=== PATIENT | male | born 1965 | race Caucasian/White ===

== ENCOUNTER 2022-07-29 18:49 | Emergency (ER) | payer OTHER, SELFPAY ==
[2022-07-29 18:52] VITALS: BP 159/84; PULSE 69; RESP 14; TEMP 36.5; O2SAT 100; BMI 27.1
--- NOTE | 2022-07-29 19:02 | ED_ITS ---
HPI - General Adult General Time Seen by Provider: 19:02 Date Seen: 07/29/22 Chief complaint: Insect Bite Stated complaint: Allergic reaction to bug bite Time Seen by Provider: 07/29/22 18:53 Source: patient and RN notes reviewed Mode of arrival: ambulatory Limitations: no limitations History of Present Illness HPI narrative: Patient is a 57-year-old male coming [facility] with concern of an allergic reaction from a bug bite. He was outside, had some type of a bug land on his right upper lip. He simply brushed it off. He went into the house and started having upper lip swelling immediately. It started quarter sized and then quickly spread to his upper lip. It feels a little numb and tingly. Does not extend into his mouth, no tongue or oral pharyngeal swelling. No difficulty breathing. He has had no rash elsewhere on his body. There is no history of any food or bug allergies before. Patient has no known drug allergies. He did take 2 Benadryl prior to coming in and did start icing his upper lip. Related Data Home Medications Medication Instructions Recorded Confirmed losartan .ROUTE 07/29/22 Previous Rx's Medication Instructions Recorded epinephrine 0.3 mg/0.3 mL 0.3 mg (0.3 mL) IM Q5-15M PRN #2 ea 07/29/22 injection, auto-injector (EpiPen) prednisone 20 mg tablet 20 mg PO DAILY #2 tabs 07/29/22 Allergies Allergy/AdvReac Type Severity Reaction Status Date / Time No Known Drug Allergies Allergy Verified 07/29/22 18:57 Review of Systems Narrative: As per HPI. PFSH PFS Social History Smoking Status: Never smoker Do you use any of these nicotine containing products: None Second hand tobacco smoke exposure: No How often do you have a drink containing alcohol: 2-3 times a week How many standard drinks containing alcohol do you have on a typical day: 1 or 2 How often do you have six or more drinks on one occasion: Never AUDIT-C Alcohol total score: 3 Non-prescribed substance use: denies use Exam Const: Vital Signs, click to edit/add: Vital Signs - 24 hr 07/29/22 18:52 Temperature 97.7 F Pulse Rate [Pulse Oximeter] 69 Respiratory Rate 14 Blood Pressure [Ri ght Upper Arm] 159/84 H Pulse Oximetry 100 Oxygen Delivery Me thod Room Air Documenting provider has reviewed patient's vital signs: yes Common normals: no apparent distress, average body habitus, oriented x3, no limitations, healthy appearing, alert and well nourished General appearance: cooperative, comfortable, well kempt and well developed HENMT: Other: His entire upper lip is swollen probably twice his normal size. Lower lip is unaffected. It does not extend up to the nose, oropharynx and tongue are uninvolved. Tongue is not swollen, oral mucosa without any swelling come posterior pharynx is normal. Voice is normal, no hoarseness, able speak in complete sentences. Lungs are clear with good air entry, no wheezing or crackles. CV regular rate and rhythm no murmur. Skin without any visible rash. Neuro: Common normals: oriented x3 Sensorium/orientation: alert Psych: Appearance: well kempt Course Course Hospital Course: Have discussed with patient that this certainly is a localized bug bite reaction. He has no idea what type of bug it was, did not feel any sting or bite from this insect. Whether not this is an initial allergic reaction and could have subsequent more significant reactions is unknown. We have reviewed this in some detail. He and his would like to have an EpiPen at home just in case he would have a significant reaction in the future. We have discussed the difference between a localized bug bite reaction and systemic reactions. We have also reviewed the need to know how to administer the EpiPen. Since he has already taken Benadryl, will add in Zyrtec here. Discussed that this can help both with the localized bug bite reaction as well as allergic reactions. Will give him 10 mg oral prednisone here since it is later in the evening. All these can help with the inflammation and swelling. Vital Signs Vital signs: Initial Vital Signs Temperature 97.7 F 07/29/22 18:52 Temperature Source Temporal Artery Scan 07/29/22 18:52 Pulse Rate 69 07/29/22 18:52 Respiratory Rate 14 07/29/22 18:52 Blood Pressure 159/84 H 07/29/22 18:52 Blood Pressure Mean 109 H 07/29/22 18:52 Blood Pressure Position Standing 07/29/22 18:52 Pulse Oximetry 100 07/29/22 18:52 Oxygen Delivery Method Room Air 07/29/22 18:52 Vital Signs Temperature 97.7 F 07/29/22 18:52 Pulse Rate 69 07/29/22 18:52 Respiratory Rate 14 07/29/22 18:52 Blood Pressure 159/84 H 07/29/22 18:52 Pulse Oximetry 100 07/29/22 18:52 Oxygen Delivery Method Room Air 07/29/22 18:52 Temperature 97.7 F 07/29/22 18:52 Pulse Rate 69 07/29/22 18:52 Respiratory Rate 14 07/29/22 18:52 Blood Pressure 159/84 H 07/29/22 18:52 Pulse Oximetry 100 07/29/22 18:52 Oxygen Delivery Method Room Air 07/29/22 18:52 Discharge Plan Discharge Clinical Impression: Bug bite, Swollen upper lip Patient Disposition: Home, Self-Care Condition: Stable Instructions: Insect Bite or Sting (ED), Anaphylaxis (ED) Additional Instructions: Continue ice to the upper lip as much as possible for the next 24-48 hours or until swelling is resolving. Use Zyrtec daily, 1st dose was given here tonight, until swelling has resolved. Would expect you might need to use Zyrtec anywhere from 3-5 days. Can continue with Benadryl as needed for ongoing upper lip swelling, follow package instructions for dosing. Will do a couple days of prednisone, take with food. Did give you a low dose of prednisone here tonight, can take the next dose tomorrow morning with food and take as prescribed for 2 days. I have provided a EpiPen for you to have on hand. This localized reaction is not necessarily considered an allergic reaction. However, any time a person is exposed to stings and bites from insects, the potential for allergic reaction with a subsequent stating he can happen. Thus, will give the prescription for the EpiPen as he requested. Review the handout on anaphylaxis which goes over signs and symptoms of systemic allergic reactions. You would use the EpiPen if you are having a systemic reaction. Activity Level: Activity as Tolerated Prescriptions: New prednisone 20 mg tablet 20 mg PO DAILY Qty: 2 0RF epinephrine [EpiPen] 0.3 mg/0.3 mL auto-injector 0.3 mg IM Q5-15M PRNQty: 2 0RF Rx Instructions: do not exceed 3 doses per episode No Action losartan .ROUTE Stand Alone Forms: [employer] Info Instructions
[2022-07-29] MEDS: predniSONE 10 MG TABLET PO (19:25)
[2022-07-29] MEDS: CETIRIZINE HCL 10 MG TABLET PO (19:27)
== END 2022-07-29 19:37 | disposition home or self-care (01) ==
PROVIDERS: Emergency Provider Family Medicine
DX: S00.561A Insect bite (nonvenomous) of lip, initial encounter (principal)
CPT/HCPCS: 99283; A9270; J7512

== ENCOUNTER 2023-05-22 20:53 | Emergency (ER) | payer OTHER, SELFPAY ==
[2023-05-22 21:15] VITALS: BP 150/83; PULSE 88; RESP 18; O2SAT 100; BMI 27.1
--- NOTE | 2023-05-22 21:36 | ED_ITS ---
HPI - General Adult General Chief complaint: Edema Stated complaint: swollen left leg Time Seen by Provider: 05/22/23 21:13 Source: patient Mode of arrival: ambulatory Limitations: no limitations History of Present Illness HPI narrative: 50 year male coming in today complaining of leg swelling. Patient was diagnosed with a bursitis and was placed on Keflex b.i.d. yesterday. He states he has had 3 doses. In the last day his leg has become more swollen and redder. He denies any fevers, chills, vomiting. He states that taking the medications makes him feel slightly nauseated for short amount of time after he takes it but otherwise he is not nauseated for the remainder of the day. He denies changes in his appetite. He is not having diarrhea. He is not having any pain inside the joint. Related Data Home Medications Medication Instructions Recorded Confirmed losartan .ROUTE 07/29/22 Previous Rx's Medication Instructions Recorded epinephrine 0.3 mg/0.3 mL 0.3 mg (0.3 mL) IM Q5-15M PRN #2 ea 07/29/22 injection, auto-injector (EpiPen) prednisone 20 mg tablet 20 mg PO DAILY #2 tabs 07/29/22 Allergies Allergy/AdvReac Type Severity Reaction Status Date / Time No Known Drug Allergies Allergy Verified 07/29/22 18:57 Review of Systems Status of ROS: Reports: 10 or more systems reviewed and unremarkable except as noted in History and below [facility] Social History Smoking Status: Never smoker Do you use any of these nicotine containing products: None Second hand tobacco smoke exposure: No How often do you have a drink containing alcohol: 2-3 times a week How many standard drinks containing alcohol do you have on a typical day: 1 or 2 How often do you have six or more drinks on one occasion: Never AUDIT-C Alcohol total score: 3 Non-prescribed substance use: denies use Exam Narrative: Exam Narrative: Well-nourished well-developed patient in no acute distress. Alert and oriented. Answers questions appropriately. Mood and affect are appropriate. Thoughts are goal oriented and rational. No tangential or magical thinking noted. Alley ent speaks in full sentences without needing to catch his breath. HEENT: Normocephalic atraumatic. Pupils are equally round reactive to light. Extraocular muscles are intact. Conjunctivae are moist without any icterus noted. Moist mucous membranes. Extremities: Patient has an obvious prepatellar bursitis with cellulitis. The area is warm and red. The bursa is swollen and soft. He has no knee pain with passive range of motion. He does have swelling going down the leg without erythema. The erythema is confined to around the anterior knee. Const: Vital Signs, click to edit/add: Vital Signs - 24 hr 05/22/23 21:15 Pulse Rate [Left P ulse Oximeter] 88 Respiratory Rate 18 Blood Pressure [Ri ght Upper Arm] 150/83 H Pulse Oximetry 100 Oxygen Delivery Me thod Room Air Course Vital Signs Vital signs: Initial Vital Signs Temperature Source Temporal Artery Scan 05/22/23 21:15 Pulse Rate 88 05/22/23 21:15 Pulse Rhythm Regular 05/22/23 21:15 Respiratory Rate 18 05/22/23 21:15 Blood Pressure 150/83 H 05/22/23 21:15 Blood Pressure Mean 105 05/22/23 21:15 Blood Pressure Position Sitting 05/22/23 21:15 Pulse Oximetry 100 05/22/23 21:15 Oxygen Delivery Method Room Air 05/22/23 21:15 Vital Signs Pulse Rate 88 05/22/23 21:15 Respiratory Rate 18 05/22/23 21:15 Blood Pressure 150/83 H 05/22/23 21:15 Pulse Oximetry 100 05/22/23 21:15 Oxygen Delivery Method Room Air 05/22/23 21:15 Pulse Rate 88 05/22/23 21:15 Respiratory Rate 18 05/22/23 21:15 Blood Pressure 150/83 H 05/22/23 21:15 Pulse Oximetry 100 05/22/23 21:15 Oxygen Delivery Method Room Air 05/22/23 21:15 Medical Decision Making MDM Narrative Medical decision making narrative: 58-year-old male with they prepatellar bursitis and cellulitis. Patient currently being under dosed with Keflex. We increased his dose to q.i.d. and add Bactrim b.i.d. for 5 days as well. We discussed that if in the next 24 hours his symptoms worsen instead of stay the same or get better that I would like him to return to the ER. Otherwise recommend he follow-up with orthopedics will he has an appointment already scheduled with the beginning of next week Discharge Plan Discharge Clinical Impression: Bursitis, prepatellar, Cellulitis Patient Disposition: Home, Self-Care Condition: Stable Additional Instructions: Monitor the amount of redness seen around the knee. If at the end of 24 hours the amount of redness grows significantly past the drawn lines of the knee, return to the ER. Would also recommend you return to the ER if you develop a fever, weakness or vomiting. Increase your cephalexin to 500 mg 4 times per day. Add Bactrim DS twice per day for 5 days. [facility] Prescriptions: No Action losartan .ROUTE prednisone 20 mg tablet 20 mg PO DAILY Qty: 2 0RF epinephrine [EpiPen] 0.3 mg/0.3 mL auto-injector 0.3 mg IM Q5-15M PRNQty: 2 0RF Rx Instructions: do not exceed 3 doses per episode Follow Up/Referrals: Provider,Not a Local [Primary Care Provider] - Stand Alone Forms: [employer] Info Instructions
== END 2023-05-22 22:03 | disposition home or self-care (01) ==
LOC: ED 21:42
PROVIDERS: Emergency Provider Family Medicine
DX: L03.116 Cellulitis of left lower limb (principal); M70.42 Prepatellar bursitis, left knee
CPT/HCPCS: 99283; 99284

== ENCOUNTER 2023-05-24 00:12 | Emergency (ER) | payer OTHER, SELFPAY ==
[2023-05-24 00:15] VITALS: BP 144/80; PULSE 69; RESP 16; TEMP 36.1; O2SAT 100; BMI 27.1
--- NOTE | 2023-05-24 00:21 | ED.GENADULT ---
HPI - General Adult General Time Seen by Provider: 00:21 Date Seen: 06/16/23 Chief complaint: Edema Stated complaint: Wants to get his leg checked. Time Seen by Provider: 05/24/23 00:20 Source: patient, RN notes reviewed and old records reviewed Mode of arrival: ambulatory Limitations: no limitations History of Present Illness HPI narrative: 50-year-old male who comes in with drainage from his knee. He was diagnosed with bursitis couple days ago, was seen in the emergency department 2 days ago and feels like his leg is getting worse. The redness has gotten a little bit better and has retreated from the previously marked areas, however the central area is more purplish and more swollen, now with some drainage. Denies fever, chills, nausea, vomiting. Related Data Home Medications Medication Instructions Recorded Confirmed losartan .ROUTE 07/29/22 Previous Rx's Medication Instructions Recorded epinephrine 0.3 mg/0.3 mL 0.3 mg (0.3 mL) IM Q5-15M PRN #2 ea 07/29/22 injection, auto-injector (EpiPen) prednisone 20 mg tablet 20 mg PO DAILY #2 tabs 07/29/22 Allergies Allergy/AdvReac Type Severity Reaction Status Date / Time No Known Drug Allergies Allergy Verified 07/29/22 18:57 PFSH PFSH Social History Smoking Status: Never smoker Do you use any of these nicotine containing products: None Second hand tobacco smoke exposure: No How often do you have a drink containing alcohol: 2-3 times a week How many standard drinks containing alcohol do you have on a typical day: 1 or 2 How often do you have six or more drinks on one occasion: Never AUDIT-C Alcohol total score: 3 Non-prescribed substance use: denies use service: No Exam Narrative: Exam Narrative: General: well nourished , NAD Head: Atraumatic and normocephalic ENT: External ears and external nose are normal Eyes: Conjunctiva clear, pupils are equal reactive, external ocular motions are intact Neck: Full spontaneous range of motion of the neck Lungs: No respiratory distress Musculoskeletal: Swelling of the left knee just over the inferior patella, this has retreated from the previous marked area but there is a purplish discolored area with small amount of purulent drainage. No joint effusion or pain with passive movement. Neurologic: No gross focal neurologic deficits Skin: No rashes Psych: Mood and affect are appropriate Const: Vital Signs, click to edit/add: Vital Signs - 24 hr 05/24/23 00:15 Temperature 96.9 F L Pulse Rate [Left P ulse Oximeter] 69 Respiratory Rate 16 Blood Pressure [Ri ght Upper Arm] 144/80 H Pulse Oximetry 100 Oxygen Delivery Me thod Room Air Course Course ED Course: Patient seen examined, prior records are reviewed including emergency department visit from yesterday days ago for this same problem, at that time was on Keflex but at twice a day, increased to 4 times a day. Swelling is improving but there is some drainage tonight. He has an appointment with orthopedics tomorrow morning. On exam, no joint effusion to suggest septic arthritis or crystal arthropathy. The central area of about 2 cm just lateral to the distal patella is tender and boggy with 1 central area of purulent drainage. After discussing risks and benefits, the area was numbed with lidocaine 1% with epinephrine and a cruciate incision was made with small amount of purulent drainage obtained. Dressing was placed. Follow-up with orthopedics tomorrow, patient may need a more aggressive debridement of the bursa itself. Vital Signs Vital signs: Initial Vital Signs Temperature 96.9 F L 05/24/23 00:15 Temperature Source Temporal Artery Scan 05/24/23 00:15 Pulse Rate 69 05/24/23 00:15 Pulse Rhythm Regular 05/24/23 00:15 Respiratory Rate 16 05/24/23 00:15 Blood Pressure 144/80 H 05/24/23 00:15 Blood Pressure Mean 101 05/24/23 00:15 Blood Pressure Position Sitting 05/24/23 00:15 Pulse Oximetry 100 05/24/23 00:15 Oxygen Delivery Method Room Air 05/24/23 00:15 Vital Signs Temperature 96.9 F L 05/24/23 00:15 Pulse Rate 69 05/24/23 00:15 Respiratory Rate 16 05/24/23 00:15 Blood Pressure 144/80 H 05/24/23 00:15 Pulse Oximetry 100 05/24/23 00:15 Oxygen Delivery Method Room Air 05/24/23 00:15 Temperature 96.9 F L 05/24/23 00:15 Pulse Rate 69 05/24/23 00:15 Respiratory Rate 16 05/24/23 00:15 Blood Pressure 144/80 H 05/24/23 00:15 Pulse Oximetry 100 05/24/23 00:15 Oxygen Delivery Method Room Air 05/24/23 00:15 Discharge Plan Discharge Clinical Impression: Bursitis, prepatellar, Cellulitis, Septic prepatellar bursitis of left knee Patient Disposition: Home, Self-Care Condition: Stable Instructions: Cellulitis (ED), Knee Bursitis (ED) Activity Level: No Restrictions Activity Detail: Follow-up with orthopedics in the morning to schedule Discharge Diet: Regular Prescriptions: No Action losartan .ROUTE prednisone 20 mg tablet 20 mg PO DAILY Qty: 2 0RF epinephrine [EpiPen] 0.3 mg/0.3 mL auto-injector 0.3 mg IM Q5-15M PRNQty: 2 0RF Rx Instructions: do not exceed 3 doses per episode Follow Up/Referrals: Provider,Not a Local [Primary Care Provider] - Stand Alone Forms: [employer] Info Instructions
== END 2023-05-24 01:00 | disposition home or self-care (01) ==
LOC: ED 00:57
PROVIDERS: Emergency Provider Family Medicine
DX: M70.42 Prepatellar bursitis, left knee (principal)
CPT/HCPCS: 10160; 99283

== ENCOUNTER 2024-10-28 13:54 | Emergency (ER) | payer OTHER, SELFPAY ==
--- OUTSIDE RECORDS SUMMARY | 2024-10-28 13:56 | XMS_ITS | Encounter Summary ---
Author Organization [employer] Address [address], [place] [address] Care Team Providers Care Supervisor [employer] Name Role Phone Yasmine Rondon PA-C Primary Care Provider [phone] Reason for Visit * Reason Comments Refill losartan (COZAAR) 50 MG tablet [Pharmacy Med Name: LOSARTAN POTASSIUM 50 MG TAB] Encounter Details Date Type Department Care Team (Late st Contact Info) Description 10/07/2024 Refill [facility] [address] [place] [address] Yasmine Rondon PA-C [address] [place] [address] Refill (losartan (COZAAR) 50 MG tablet [Pharmacy Med Name: LOSARTAN POTASSIUM 50 MG TAB]) Social History Tobacco Use Types Packs/Day Years Used Date Smoking Tobacco: Never Passive Smoke Exposure: Never Smokeless Tobacco: Never Alcohol Use Standard Drinks/Week Comments Yes 4 (1 standard drink = 0.6 oz pur e alcohol) few drinks mo PHQ-2 Answer Date Recorded PHQ-2 Score 0 08/10/2023 Financial Resource Strain Answer Date R ecorded Is it hard for you to pay fo r the very basics like food, housing, medical care or heating? No 06/06/2022 Food Insecurity Answer Date Recorded Does your food run out before you have the money to buy more? No 06/06/2022 Transportation Needs Answer Date Record ed Does a lack of transportatio n keep you from your medical appointments or from getting your medications? 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 Patient due for Lab(s). Review pended order for accuracy and sign if appropriate, Clinician to order lab(s) and document ifpatient is due for lab only visit or office visit and lab, and Route to [facility] Line to schedule appointment Requested Prescriptions Pending Prescriptions Disp Refills losartan (COZAAR) 50 MG tablet [Pharmacy Med Name: LOSARTAN POTASSIUM 50 MG TAB] 90 Tablet 0 Sig: TAKE 1 TABLET BY MOUTH EVERY DAY * Marcela Smith [employer]rwcomm - 10/07/2024 12:27 AM CDT losartan (COZAAR) 50 MG tablet [Pharmacy Med Name: LOSARTAN POTASSIUM 50 MG TAB] Medication started: 10/14/2018 Last ordered by YASMINE RONDON: 08/10/2023 (424 days ago) QTY: 90, Refills: 3, Sig: take 1 tablet (50 mg) by mouth daily. (changed but equivalent) -> Cr and K are overdue (performed over 14 months ago, required every 12 months) Last qualifying visit: 05/11/2024 (with YASMINE RONDON) Next scheduled visit: None Cr: 0.85 mg/dL on 08/10/2023 K: 5 mEq/L on 08/10/2023 [facility] Embedded Refills, Reference: [id number], 10/07/2024 12:27:16 AM CDT, Pool: SASHA Refgabriella [facility] - Primary [facility] ([id number]) * Marcela Smith - 10/07/2024 12:27 AM CDT The following lab order(s) may be associated with the Result Note below: BASIC METABOLIC PANEL Notes recorded by Yasmine Rondon on 08/10/2023 at 12:04 PM CDT All of your lab results returned within normal and acceptable limits * Marcela Smith - 10/07/2024 12:27 AM CDT The following lab order(s) may be associated with the following Patient Result Comment (Entered by Yasmine Rondon PA-C at 08/10/2023 12:04 PM): BASIC METABOLIC PANEL All of your lab results returned within normal and acceptable limits documented in this encounter Plan of Treatment Upcoming Encounters Date Type Department Care Team (Late st Contact Info) Description 11/02/2024 8:15 AM CDT Appointment [facility] [address] [facility] [place] [address] Leanne Pelayo MD [address] [place] [address] documented as of this encounter Visit Diagnoses Diagnosis Hypertension, unspecified type (HRC) documented in this encounter Care Teams Supervisor [employer] Relationship Specialty Start Date End Date Yasmine Rondon PA-C [address] [place] [address] PCP - General 02/07/21 documented as of this encounter
--- OUTSIDE RECORDS SUMMARY | 2024-10-28 13:56 | XMS_ITS | Clinical Summary ---
Author Organization [facility] Address [address] [place] [address] Care Team Providers Care Sulfonator Operator Name Role Phone Mary Rondon PA-C Primary Care Provider [phone] Source Comments You are receiving this document as you are listed as the primary care provider,follow-up provider, or the patient has been referred to you for consultation.This is in compliance with the Medicare and[facility] Cent[facility] EHR Incentive Program,which states Providers who transition their patient to another setting of careor provider of care or refers their patient to another provider of care shouldprovide summary care record for each transition of care or referral. [facility] Allergies No known active allergies Medications sildenafil (VIAGRA) 100 MG tabletIndicatio ns:Erectile dysfunction, unspecified erectile dysfunction type TAKE 0.5-1 TABLET (50-100 MG) BY MOUTH DAILY NEEDED. 6 Tablet 11 08/15/19 23 Active triamcinolone acetonide (KENALOG) 0.1 % creamIndication s:Rash APPLY TOPICALLY THREE TIMES A DAY 80 g 1 06/14/19 24 Active fluticasone propionate (FLONASE) 50 MCG/ACT nasal solution Place 2 Sprays into both nostrils daily. Active metroNIDAZOLE (METROLOTION) 0.75 % lotionIndicatio ns:Acne rosacea APPLY TOPICALLY TWO TIMES A DAY. 60 mL 3 01/18/20 24 Active ALPRAZolam (XANAX) 1 MG tablet Take 1 Tablet (1 mg) by mouth once as needed for up to 1 dose. Take when instructed by nurse, pre-procedure 1 Tablet 03/01/19 25 Active losartan (COZAAR) 50 MG tabletIndicatio ns:Hypertension , unspecified type (HRC) TAKE 1 TABLET BY MOUTH EVERY DAY 90 Tablet 10/13/19 25 Active losartan (COZAAR) 50 MG tabletIndicatio ns:Hypertension , unspecified type (HRC) Take 1 Tablet (50 mg) by mouth daily. 90 Tablet 3 08/10/19 24 025 Discontinued Active Problems Problem Noted Date Diagnosed Date Hypertension 06/09/2022 Acne rosacea 06/09/2022 Personal history of other malignant neoplasm of skin 05/23/2008 Overview (09/30/2016): Mid back and mid inferior back treated with ED&C on 05/23/2008 ; History of Basal cell carcinoma Allergic rhinitis 04/01/2004 Overview (11/08/2014): seasonal spring and fall Epic Encounters Date Type Department Care Team Description 10/07/2024 Refill [facility] [address] [phone] Mary Rondon PA-C Refill (losartan (COZAAR) 50 MG tablet [Pharmacy Med Name: LOSARTAN POTASSIUM 50 MG TAB]) from Last 3 Months Immunizations Immunization Administration Dates Next Due Influenza IIV4 (Quadrivalent ) 0.5mL (75749) 12/10/2021,01/01/2021 Influenza ccIIV3 6 months+ (Flucelvax) 11/05/2023,11/07/2022 Moderna Bivalent 12+ 12/13/2021 Moderna COVID-19 12+ 11/05/2023 Moderna Monovalent 12+ 11/07/2022,2021,02/27/2021,2020,05/28/2020 Td 10/15/2005,02/08/1996 Td (7+ yrs) 04/08/2015 Tdap 10/15/2005 Varicella 10/09/1999(Deferred: Immune by [facility]) Zoster RZV (Shingrix) 11/07/2021,07/25/2021 Family History Medical History Relation Name Comments Coronary Artery Disease Father 62 ? 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 Not on file Not on file Last Filed Vital Signs Vital Sign Reading Time Taken Comments Blood Pressure 139/86 05/11/2024 8:27 AM CDT Pulse 67 05/11/2024 8:27 AM CDT Temperature 36.4 C (97.6 F) 11/19/2023 12:14 PM CDT Respiratory Rate 12 11/19/2023 12:30 PM CDT Oxygen Saturation 100% 11/19/2023 12:30 PM CDT Inhaled Oxygen Concentration - - Weight 95.7 kg (211 lb) 05/11/2024 8:27 AM CDT Height 182.9 cm (6') 05/11/2024 8:27 AM CDT Body Mass Index 28.62 05/11/2024 8:27 AM CDT Plan of Treatment Upcoming Encounters Date Type Department Care Team (Late st Contact Info) Description 11/02/2024 8:15 AM CDT Appointment [facility] [address] [facility] [place] [address] Leanne Pelayo MD [address] [place] [address] Health Maintenance Due Date Last Done Comments Hep C Screening (Preventive Services) 1965 HIV Screening (Preventive Services) 1981 HepB Vaccine (1) 1984 Pneumococcal Vaccine 50+ Yrs (1 of 1 - PCV) 2015 Adult Preventive Visit 08/09/2024 4, 06/09/2022, 04/22/2021, Additional history exists PSA Screening Discussion 08/09/2024 024, 06/09/2022, 04/22/2021, Additional history exists Influenza Vaccine (#1) 2024 4, 11/07/2022, 12/10/2021, Additional history exists DTaP/Tdap/Td Vaccine (4 - Tdap) 04/07/2025 04/08/2015, 10/15/2005, 10/15/2005, Additional history exists Diabetes Screening- (based on age and BMI) 08/09/2026 08/10/2023, 06/09/2022, 04/22/2021, Additional history exists Cholesterol 06/10/2027 06/09/2022, 04/08, 01/17/2020, Additional history exists Colonoscopy 11/18/2033 11/19/2023 Zoster/Shingles Vaccine Completed 11/07/2021, 07/25 FIT Colon Cancer Screening Discontinued 06/09, 06/15/2022, 06/25/2021, Additional history exists COVID-19 Vaccine Completed 11/05/2023, , 12/13/2021, Additional history exists HepA Vaccine Aged Out No longer eligi ble based on patient's age to complete this topic Hib Vaccine Aged Out No longer eligi ble based on patient's age to complete this topic IPV (Polio) Vaccine Aged Out No longe r eligible based on patient's age to complete this topic MCV4 Vaccine Aged Out No longer eligi ble based on patient's age to complete this topic Meningococcal B Vaccine Aged Out No l onger eligible based on patient's age to complete this topic Procedures Procedure Name Priority Date/Time Associated Diagnosis Comments COLONOSCOPY SCREENING Routine 11/19/2023 11:42 AM CDT Special screening for malignant neoplasms, colon HGB A1C Routine 08/10/2023 9:01 AM CDT Screening for diabetes mellitus PROSTATIC SPECIFIC ANTIGEN(SCREEN) Routine 08/10/2023 9:01 AM CDT Screening for prostate cancer FIT,OCCULT BLOOD, STOOL Routine 06/10/2023 7:30 AM CDT Screening for colon cancer LIPID PANEL & DIRECT LDL (IF NEEDED) Routine 06/09/2022 9:03 AM CDT Screening cholesterol level from Last 3 Months or Most Recently Relevant to Health Maintenance Results * Colonoscopy Screening - Mod Sedation (11/19/2023 11:42 AM CDT) Anatomical Region Laterality Modality Other 11/19/2023 11:4 2 AM CDT Narrative 11/19/2023 12:15 PM CDT Instrument Name: [id number] Indications: Screening for colorectal malignant neoplasm Providers: Deborah Whaley MD, Daniela Graves LPN, Yanci Flores Patient Profile: This is a 58 year old male here for first screening colonoscopy, FIT testing negative through 2022, no known family history of colon cancer or polyps. Clinically asymptomatic.. Referring MD: Mary Laureano Medicines: Fentanyl 100 micrograms IV, Midazolam 4 mg IV Complications: No immediate complications. Procedure: Pre-Anesthesia Assessment: - Prior to the procedure, a History and Physical was performed, and patient medications and allergies were reviewed. The patient is competent. The risks and benefits of the procedure and the sedation options and risks were discussed with the patient. All questions were answered and informed consent was obtained. Patient identification and proposed procedure were verified by the physician and the nurse in the procedure room. Mental Status Examination: alert and oriented. Airway Examination: normal oropharyngeal airway and neck mobility. Respiratory Examination: clear to auscultation. CV Examination: normal. Prophylactic Antibiotics: The patient does not require prophylactic antibiotics. Prior Anticoagulants: The patient has taken no anticoagulant or antiplatelet agents. ASA Grade Assessment: I - A normal, healthy patient. After reviewing the risks and benefits, the patient was deemed in satisfactory condition to undergo the procedure. The anesthesia plan was to use moderate sedation / analgesia (conscious sedation). Immediately prior to administration of medications, the patient was re-assessed for adequacy to receive sedatives. The heart rate, respiratory rate, oxygen saturations, blood pressure, adequacy of pulmonary ventilation, and response to care were monitored throughout the procedure. The physical status of the patient was re-assessed after the procedure. After I obtained informed consent, the scope was passed under direct vision. Prior to sedation, patient identity and procedure was reverified. Throughout the procedure, the patient's blood pressure, pulse, and oxygen saturations were monitored continuously. The Colonoscope was introduced through the anus and advanced to the terminal ileum. The colonoscopy was performed without difficulty. The patient tolerated the procedure well. The quality of the bowel preparation was evaluated using the BBPS ([place] Bowel Preparation Scale) with scores of: Right Colon = 2 (minor amount of residual staining, small fragments of stool and/or opaque liquid, but mucosa seen well), Transverse Colon = 3 (entire mucosa seen well with no residual staining, small fragments of stool or opaque liquid) and Left Colon = 3 (entire mucosa seen well with no residual staining, small fragments of stool or opaque liquid). The total BBPS score equals 8. The quality of the bowel preparation was good. Findings: The perianal and digital rectal examinations were normal. Non-bleeding internal hemorrhoids were found during retroflexion. The exam was otherwise without abnormality on direct and retroflexion views. The terminal ileum appeared normal. Moderate Sedation: Moderate (conscious) sedation was administered by the nurse and supervised by the endoscopist. The following parameters were monitored: oxygen saturation, heart rate, blood pressure, and response to care. Total physician intraservice time was 20 minutes. Impression: - Non-bleeding internal hemorrhoids. - The examination was otherwise normal on direct and retroflexion views. - The examined portion of the ileum was normal. - No specimens collected. Recommendation: - Discharge patient to home. - Resume previous diet. - Continue present medications. - Repeat colonoscopy in 10 years for screening purposes. - Return sooner (5 years) if new family history of colon cancer or advanced adenoma or if any new symptoms such as diarrhea or rectal bleeding (speak to PCP for diagnostic colonoscopy). Procedure Code(s): --- Professional --- 18914, Colonoscopy, flexible; diagnostic, including collection of specimen(s) by brushing or washing, when performed (separate procedure) G0500, Moderate sedation services provided by the same physician or other qualified health foster care worker performing a gastrointestinal endoscopic service that sedation supports, requiring the presence of an independent trained observer to assist in the monitoring of the patient's level of consciousness and physiological status; initial 15 minutes of intra-service time; patient age 5 years or older (additional time may be reported with 56569, as appropriate) Diagnosis Code(s): --- Professional --- Z12.11, Encounter for screening for malignant neoplasm of colon K64.8, Other hemorrhoids CPT copyright 2021 [employer] [place] [employer]. All rights reserved. The codes documented in this report are preliminary and upon hospital coder review may be revised to meet current compliance requirements. Attending Participation: Deborah Whaley MD 11/19/2023 12:15:15 PM Number of Addenda: 0 Note Initiated On: 11/19/2023 11:42 AM Procedure Note Deborah Whaley MD - 11/19/2023 Instrument Name: 288 Indications: Screening for colorectal malignant neoplasm Providers: Deborah Whaley MD, Daniela Graves LPN, Yanci Flores Patient Profile: This is a 58 year old male here for first screening colonoscopy, FIT testing negative through 2022, no known family history of colon cancer or polyps. Clinically asymptomatic.. Referring MD: Mary Laureano Medicines: Fentanyl 100 micrograms IV, Midazolam 4 mg IV Complications: No immediate complications. Procedure: Pre-Anesthesia Assessment: - Prior to the procedure, a History and Physical was performed, and patient medications and allergies were reviewed. The patient is competent. The risks and benefits of the procedure and the sedation options and risks were discussed with the patient. All questions were answered and informed consent was obtained. Patient identification and proposed procedure were verified by the physician and the nurse in the procedure room. Mental Status Examination: alert and oriented. Airway Examination: normal oropharyngeal airway and neck mobility. Respiratory Examination: clear to auscultation. CV Examination: normal. Prophylactic Antibiotics: The patient does not require prophylactic antibiotics. Prior Anticoagulants: The patient has taken no anticoagulant or antiplatelet agents. ASA Grade Assessment: I - A normal, healthy patient. After reviewing the risks and benefits, the patient was deemed in satisfactory condition to undergo the procedure. The anesthesia plan was to use moderate sedation / analgesia (conscious sedation). Immediately prior to administration of medications, the patient was re-assessed for adequacy to receive sedatives. The heart rate, respiratory rate, oxygen saturations, blood pressure, adequacy of pulmonary ventilation, and response to care were monitored throughout the procedure. The physical status of the patient was re-assessed after the procedure. After I obtained informed consent, the scope was passed under direct vision. Prior to sedation, patient identity and procedure was reverified. Throughout the procedure, the patient's blood pressure, pulse, and oxygen saturations were monitored continuously. The Colonoscope was introduced through the anus and advanced to the terminal ileum. The colonoscopy was performed without difficulty. The patient tolerated the procedure well. The quality of the bowel preparation was evaluated using the BBPS ([place] Bowel Preparation Scale) with scores of: Right Colon = 2 (minor amount of residual staining, small fragments of stool and/or opaque liquid, but mucosa seen well), Transverse Colon = 3 (entire mucosa seen well with no residual staining, small fragments of stool or opaque liquid) and Left Colon = 3 (entire mucosa seen well with no residual staining, small fragments of stool or opaque liquid). The total BBPS score equals 8. The quality of the bowel preparation was good. Findings: The perianal and digital rectal examinations were normal. Non-bleeding internal hemorrhoids were found during retroflexion. The exam was otherwise without abnormality on direct and retroflexion views. The terminal ileum appeared normal. Moderate Sedation: Moderate (conscious) sedation was administered by the nurse and supervised by the endoscopist. The following parameters were monitored: oxygen saturation, heart rate, blood pressure, and response to care. Total physician intraservice time was 20 minutes. Impression: - Non-bleeding internal hemorrhoids. - The examination was otherwise normal on direct and retroflexion views. - The examined portion of the ileum was normal. - No specimens collected. Recommendation: - Discharge patient to home. - Resume previous diet. - Continue present medications. - Repeat colonoscopy in 10 years for screening purposes. - Return sooner (5 years) if new family history of colon cancer or advanced adenoma or if any new symptoms such as diarrhea or rectal bleeding (speak to PCP for diagnostic colonoscopy). Procedure Code(s): --- Professional --- 18003, Colonoscopy, flexible; diagnostic, including collection of specimen(s) by brushing or washing, when performed (separate procedure) G0500, Moderate sedation services provided by the same physician or other qualified health foster care worker performing a gastrointestinal endoscopic service that sedation supports, requiring the presence of an independent trained observer to assist in the monitoring of the patient's level of consciousness and physiological status; initial 15 minutes of intra-service time; patient age 5 years or older (additional time may be reported with [id number], as appropriate) Diagnosis Code(s): --- Professional --- Z12.11, Encounter for screening for malignant neoplasm of colon K64.8, Other hemorrhoids CPT copyright 2021 [employer] [place] [employer]. All rights reserved. The codes documented in this report are preliminary and upon hospital coder review may be revised to meet current compliance requirements. Attending Participation: Deborah Whaley MD 11/19/2023 12:15:15 PM Number of Addenda: 0 Note Initiated On: 11/19/2023 11:42 AM Seda Evans MD ET GI PROCEDURE ORDERABLES Final Result * Prostatic Specific Antigen (Screen) (08/10/2023 9:01 AM CDT) Prostatic Specific Antigen 0.4 0.0 - 4.0 ng/mL 08/10/2023 12:03 PM CDT [email or web address] Blood Venipuncture / Unknown 08/10/2023 9:01 AM CDT 08/10/2023 9:01 AM CDT Narrative [facility] - 08/10/2023 12:03 PM CDT The [employer] PSA Chemiluminescent immunoassay is used. Results obtained with different test methods or kits cannot be used interchangeably. Mary Rondon PA-C LAB_1 Final Resu lt [facility] [address] * Hgb A1C (08/10/2023 9:01 AM CDT) [facility] Hemoglobin A1C 5.3 <=5.6 % 08/10/2023 11:49 AM CDT [facility] Estimated Average Glucose (Calc) 105 < 117 mg/dL 08/10/2023 11:49 AM CDT [facility] Comment:Estimated average gl ucose (eAG) converts A1c into glucose units (mg/dL) and estimates average glucose over the past approximately 3 months. The eAG reference interval (<117 mg/dL) corresponds to an A1c of <5.7%. Blood Venipuncture / Unknown 08/10/2023 9:01 AM CDT 08/10/2023 9:01 AM CDT Mary Rondon PA-C LAB_1 Final Resu lt Performing Organization Address [facility]/ZIP Co de Phone Number [facility] [address] * FIT Colon Rectal Cancer Screening [4702] (06/10/2023 7:30 AM CDT) [facility] FIT Specimen 1 Negative Negative 06/15/2023 2:02 AM CDT [facility] Stool Non-blood Collection / Unknown 06/10/2023 7:30 AM CDT 06/14/2023 2:10 PM CDT Mary Rondon PA-C LAB_1 Final Resu lt Performing Organization Address [facility]/State/ZIP Co de Phone Number [facility] [address] * Lipid Panel and Direct LDL(If Needed) (06/09/2022 9:03 AM CDT) [facility] Cholesterol 178 0 - 199 mg/dL 06/09/2022 12:00 PM CDT [facility] Triglyceride 39 <=149 mg/dL 06/09/2022 12:00 PM CDT [facility] HDL Cholesterol 65 >=40 mg/dL 06/09/2022 12:00 PM CDT [facility] LDL, Calculated 105 <130 mg/dL 06/09/2022 12:00 PM CDT [facility] Non HDL Chol, Calculated 113 <=159 mg/dL 06/09/2022 12:00 PM CDT [facility] Cholesterol/HDL Ratio 2.7 06/09/2022 12:00 PM CDT [facility] Hours Fasting 2 06/09/2022 12:00 PM CDT [facility] Blood Venipuncture / Unknown 06/09/2022 9:03 AM CDT 06/09/2022 9:03 AM CDT us Mary Rondon PA-C LAB_1 Final Resu lt Performing Organization Address City/State/[facility] Co de Phone Number [facility] [address] [address] [phone] [facility] [address] [employer] [place] [address] from Last 3 Months or Most Recently Relevant to Health Maintenance Insurance SELF INSURED HP SELF INSURED [employer] SELF INSURED Care Teams Sulfonator Operator Relationship Specialty Start Date End Date Mary Rondon PA-C [address] [place] [address] PCP - General 02/07/21
[2024-10-28 14:01] VITALS: BP 153/74; PULSE 66; RESP 18; TEMP 36.3; O2SAT 96; BMI 27.1
[2024-10-28 14:28] LABS: Troponin, Point-of-Care* 0.00 ng/ml (0.01-0.04)
[2024-10-28 14:32] LABS: Hematocrit* 42.7 % (37.0-53.0); Hemoglobin* 14.1 gm/dL (13.5-17.5); Immature Granulocytes Pct Auto 0.7 %; Mean Corpuscular HGB Conc 33 gm/dL (32-36); Mean Corpuscular Hemoglobin 30 pg (26-34); Mean Corpuscular Volume 92 fL (80-100); RDW Coefficient of Variation % 13.3 % (11.5-15.5); Red Blood Count* 4.66 m/uL (4.30-5.90); White Blood Count* 4.47 K/uL (4.50-11.00)
[2024-10-28 14:33] LABS: Immature Granulocytes Abs Auto 0.00 K/uL (0.00-0.30); Lymphocytes Absolute Auto 1.30 K/uL (0.90-2.90); Slide Review Reflex No
[2024-10-28 14:41] LABS: Chloride* 102 mmol/L (96-114); Sodium* 136 mmol/L (135-149)
[2024-10-28 14:42] LABS: Potassium* 4.1 mmol/L (3.6-5.1)
[2024-10-28 14:44] LABS: Blood Urea Nitrogen* 15 mg/dL (7-30); Creatinine* 0.7 mg/dL (0.5-1.5); Est. Creatinine Clearance* 124.71; Estimated Glomerular Filt Rate 106 ml/min
[2024-10-28 14:45] LABS: Anion Gap 6 mEq/L (7-15); Calcium* 8.6 mg/dL (8.4-10.6); Carbon Dioxide* 28 mmol/L (20-32); Glucose* 101 mg/dL (60-115)
--- NOTE | 2024-10-28 15:02 | ED_ITS ---
HPI - General Adult General Date Seen: 10/28/24 Chief complaint: Jaw Injury/Pain Stated complaint: Left jaw, stiff and pain Time Seen by Provider: 10/28/24 15:02 History of Present Illness HPI narrative: 59 yo M with history of varicose veins, previous prepatellar bursitis who presents to the ER today by private car with his for concern for stiffness and discomfort in his left neck. Symptoms happened couple of hours prior to arrival at about 12 30. He and his were doing normal errands and going to a local apple ordered. He was not doing any neck movement or twisting or any strenuous physical activity when he felt onset of a tight stiff feeling in the left side of his neck (gestures at the left sternocleidomastoid muscle). Symptoms lasted for few minutes and made him uncomfortable but not enough to prevent him from continuing on his errands. He and his picked up a bag of apples. Symptoms started to get better in his neck and are now improving but not completely resolved. He had a little bit of tingling is in his left cheek. No headache. No posterior neck pain. No sore throat. No trouble swallowing. He has not had any recent fever or chills. No nasal congestion. No recent sore throat. No recent chest pain. No no neck injury. No falls or injuries. He is not having any chest pain. No palpitations. No pain radiating through to the back of his chest or neck. He is not having any radiating pain down his arm. Now that he is here in the ER he says his left anterior lateral neck pain is down to about a 1/10. He does not think it is in his throat. No associated headache, earache, facial pain. Related Data Home Medications ?Medication ?Instructions ?Recorded ?Confirmed losartan .ROUTE 07/29/22 Previous Rx's ?Medication ?Instructions ?Recorded epinephrine 0.3 mg/0.3 mL 0.3 mg (0.3 mL) IM Q5-15M MS N #2 ea 07/29/22 injection, auto-injector (EpiPen) prednisone 20 mg tablet 20 mg PO DAILY #2 tabs 07/29 Allergies Allergy/AdvReac Type Severity Reaction Status Date / Time No Known Drug Allergies Allergy Verified 07/29/22 18:57 [facility] Social History Smoking Status: Never smoker Do you use any of these nicotine containing products: None Second hand tobacco smoke exposure: No How often do you have a drink containing alcohol: 2-3 times a week How many standard drinks containing alcohol do you have on a typical day: 1 or 2 How often do you have six or more drinks on one occasion: Never AUDIT-C Alcohol total score: 3 Non-prescribed substance use: denies use service: No Exam Narrative: Exam Narrative: Constitutional: Appears well-developed and well-nourished. Alert. Conversant. Non toxic. HENT: Head: Atraumatic. Nose: Nose normal. Mouth/Throat: Oral mucosa is clear and moist. no trismus. Pharynx normal. Tonsils symmetric. No tonsillar enlargement, erythema, or exudate. No trismus. No neck swelling. Eyes: Conjunctivae normal. EOM normal. Pupils equal, round, and reactive to light. No scleral icterus. Neck: Normal range of motion. Normal phonation. Neck supple. No tracheal deviation present. No swelling. Sternocleidomastoid is nontender bilaterally. No cervical adenopathy. No carotid bruits. Cardiovascular: Normal rate, regular rhythm. No gallop. No friction rub. No murmur heard. Symmetric radial artery pulses Pulmonary/Chest: Effort normal. No stridor. No respiratory distress. No wheezes. No rales. No rhonchi . No tenderness. Abdominal: Soft. No distension. No mass. No tenderness. No rebound. No guarding. Musculoskeletal: RUE: Normal range of motion. No tenderness. No deformity LUE: Normal range of motion. No tenderness. No deformity RLE: Normal range of motion. No edema. No tenderness. No deformity LLE: Normal range of motion. No edema. No tenderness. No deformity Lymph: No anterior, posterior cervical adenopathy. No submental adenopathy. Neurological: Alert and oriented to person, place, and time. Normal strength. CN II-VII intact. No sensory deficit. GCS eye subscore is 4. GCS verbal subscore is 5. GCS motor subscore is 6. Normal coordination Skin: Skin is warm and dry. No rash noted. No pallor. Normal capillary refill. Psychiatric: Normal mood. Normal affect. Const: Vital Signs, click to edit/add: Vital Signs - 24 hr 10/28/24 14:01 Temperature 97.4 F L Pulse Rate [Right Pulse Oximeter] 66 Respiratory Rate 18 Blood Pressure [Ri ght Upper Arm] 153/74 H Pulse Oximetry 96 Oxygen Delivery Me thod Room Air Course Course ED Course: Recheck-still doing well. his neck tightness is resolved and continues to joyce in resolved. Reevaluation(s) Reevaluation #1: Recheck-discussed workup so far with the patient. Reevaluation #2: Recheck-updated patient and . Second troponin came back undetectable. Vital Signs Vital signs: Initial Vital Signs Temperature 97.4 F L 10/28/24 14:01 Temperature Source Temporal Artery Scan 10/28/24 14:01 Pulse Rate 66 10/28/24 14:01 Respiratory Rate 18 10/28/24 14:01 Blood Pressure 153/74 H 10/28/24 14:01 Blood Pressure Mean 100 10/28/24 14:01 Blood Pressure Position Sitting 10/28/24 14:01 Pulse Oximetry 96 10/28/24 14:01 Oxygen Delivery Method Room Air 10/28/24 14:01 Vital Signs Temperature 97.4 F L 10/28/24 14:01 Pulse Rate 66 10/28/24 14:01 Respiratory Rate 18 10/28/24 14:01 Blood Pressure 153/74 H 10/28/24 14:01 Pulse Oximetry 96 10/28/24 14:01 Oxygen Delivery Method Room Air 10/28/24 14:01 Temperature 97.4 F L 10/28/24 14:01 Pulse Rate 66 10/28/24 14:01 Respiratory Rate 18 10/28/24 14:01 Blood Pressure 153/74 H 10/28/24 14:01 Pulse Oximetry 96 10/28/24 14:01 Oxygen Delivery Method Room Air 10/28/24 14:01 Medical Decision Making MDM Narrative Medical decision making narrative: Pleasant 59-year-old gentleman presenting to the ER today with an episode of atraumatic discomfort and stiffness affecting his left anterolateral neck essentially over the sternocleidomastoid and just medial to it, potentially in the anatomic location of the carotid artery. Patient says his symptoms have largely resolved but the time of presentation and evaluation here in the ER. Differential is broad. He does not have any recent sore throat and has no clinical evidence for pharyngitis, epiglottitis, peritonsillar abscess, retropharyngeal abscess. No evidence for any shingles on the side of the neck. He is not having any posterior neck pain to raise concern for cervical spine disease or left arm numbness to raise concern for radiculopathy. Trachea is midline. No signs of any expanding spontaneous hematoma. No evidence for crepitus or gas in the soft tissue of the neck. Consider possible referred pain from acute coronary syndrome but he has not been having any chest pain at all. Initial EKG and troponin are normal. Although ACS is unlikely, we did obtain a 2 hour delta troponin which is normal. Since this tightness and discomfort was directly around the left carotid artery, although I do not appreciate any stroke symptoms or any carotid bruit, we did obtain a CT angiogram which is fortunately normal. CT of his head neck is normal showing no dissection, stenosis, aneurysmal disease. CT scan of the patient's head is also normal. At this point workup above is reassuring. Unclear cause of the pain. Could potentially than musculoskeletal or muscle spasm. With reasonable clinical confidence that think this patient is safe to discharge from the ER with careful monitoring at home. Precautions for return to the ER with any worsening or recurring symptoms were reviewed. Lab Data Labs: Lab Results 10/28/24 10/28/24 Range/Units 14:15 16:15 WBC 4.47 L (4.50-11.00) K/uL RBC 4.66 (4.30-5.90) m/uL Hgb 14.1 (13.5-17.5) gm/dL Hct 42.7 (37.0-53.0) % MCV 92 (80-100) fL MCH 30 (26-34) pg MCHC 33 (32-36) gm/dL RDW Coeff of Josiah 13.3 (11.5-15.5) % Plt Count 245 (140-440) K/uL Neut % (Auto) 58.2 (42.0-72.0) % Lymph % (Auto) 29.3 (20-44) % [place] % (Auto) 9.8 (0.0-11.0) % Eos % (Auto) 1.6 (0.0-7.0) % Baso % (Auto) 0.4 (0.0-3.0) % Neut # (Auto) 2.60 (1.7-7.0) K/uL Lymph # (Auto) 1.30 (0.90-2.90) K/uL [place] # (Auto) 0.40 (0.00-0.90) K/UL Eos # (Auto) 0.10 (0.00-0.50) K/uL Baso # (Auto) 0.00 (0.00-0.30) K/uL Abs Immat Gran (auto) 0.00 (0.00-0.30) K/uL Imm/Tot Granulo (auto) 0.7 % ESR 2 (2-15) mm/hr Sodium 136 (135-149) mmol/L Potassium 4.1 (3.6-5.1) mmol/L Chloride 102 (96-114) mmol/L Carbon Dioxide 28 (20-32) mmol/L Anion Gap 6 L (7-15) mEq/L BUN 15 (7-30) mg/dL Creatinine 0.7 (0.5-1.5) mg/dL Estimated Creat Clear 124.71 Estimated GFR 106 ml/min Glucose 101 (60-115) mg/dL Calcium 8.6 (8.4-10.6) mg/dL POC Troponin I 0.00 L 0.00 L (0.01-0.04) ng/ml Imaging Data CT scan - head: Attestation: I have reviewed the pertinent imaging results. Radiologist's impression: IMPRESSION:1. No CT evidence of acute cortical infarct. No acute intracranial hemorrhage. No other acute intracranial findings. CTA head and neck: Attestation: I have reviewed the pertinent imaging results. Radiologist's impression: FINDINGS: CTA head: No emergent large vessel occlusion or high-grade intracranial arterial stenosis. CTA neck: No flow-limiting stenosis. No evidence of dissection. ECG Data Attestation: I personally reviewed and interpreted this ECG as follows: Interpretation: Normal sinus rhythm Rate 66 MS interval 172 Normal QRS axis. No pathologic Q-waves No ST segment elevation or depression QTC 408, QTC 427 Discharge Plan Discharge Clinical Impression: Neck pain Patient Disposition: Home, Self-Care Condition: Stable Instructions: Acute Neck Pain (ED) Additional Instructions: As we discussed, so far your workup looks reassuring. We do not see any sign of heart attack based on your EKG and blood tests. We do not see any sign of any infection in your neck or any signs of blockages or problems with the carotid arteries in your neck. So far your other blood tests like your blood counts, kidney function, electrolytes look normal. Please monitor your self carefully. If you are having more episodes of pain in your neck, or if you have any other concerning symptoms such as severe headache, facial pain or numbness in your face, pain in your chest or trouble breathing, or if you have any other concerns please come back to the ER right away. Even if you are getting better, please recheck with your regular doctor within 5-7 days Prescriptions: No Action losartan .ROUTE prednisone 20 mg tablet 20 mg PO DAILY Qty: 2 0RF epinephrine [EpiPen] 0.3 mg/0.3 mL auto-injector 0.3 mg IM Q5-15M PRNQty: 2 0RF Rx Instructions: do not exceed 3 doses per episode Follow Up/Referrals: Provider,Not a Local [Primary Care Provider, Family Practice] Stand Alone Forms: [employer] Info Instructions
[2024-10-28 15:08] LABS: Erythrocyte SedimentationRate* 2 mm/hr (2-15)
[2024-10-28 15:12] VITALS: PULSE 68; O2SAT 100
[2024-10-28 15:15] VITALS: PULSE 67; O2SAT 100
[2024-10-28 15:17] VITALS: BP 162/97; PULSE 67; O2SAT 100
--- NOTE | 2024-10-28 15:29 | CRLHL7_ITS ---
For Patients: As a result of the Century Cures Act, medical imaging exams and procedure reports are released immediately into your electronic medical record. You may view this report before your referring provider. If you have questions, please contact your health care provider. INDICATION: Left neck pain and facial numbness. TECHNIQUE: CTA head using intravenous contrast with bolus tracking, 3D angiographic rendering using maximum intensity projection (MIP) and images permanently archived. CTA neck using intravenous contrast with bolus tracking, 3D angiographic rendering using maximum intensity projection (MIP) and images permanently archived. FINDINGS: CTA head: There is normal opacification of the intracranial vasculature. There is no large vessel occlusion or significant intracranial stenosis. No aneurysm is identified. CTA neck: There is no significant carotid artery stenosis or dissection. There is no significant vertebral artery stenosis or dissection. IMPRESSION: Unremarkable head CTA. No significant carotid or vertebral artery stenosis or dissection. Please note that all CT scans at this facility use dose modulation, iterative reconstruction, and/or weight-based dosing when appropriate to reduce radiation dose to as low as reasonably achievable. Dictated by Hamilton Ramirez MD @ 10/28/2024 6:31:55 PM (Electronically Signed)
--- NOTE | 2024-10-28 15:29 | CRLHL7_ITS ---
For Patients: As a result of the Century Cures Act, medical imaging exams and procedure reports are released immediately into your electronic medical record. You may view this report before your referring provider. If you have questions, please contact your health care provider. INDICATION: Left neck pain. Facial numbness. TECHNIQUE: CT of the head without contrast. Coronal and sagittal reformats are included. COMPARISON: None. FINDINGS: No CT evidence of acute cortical infarct. No loss of montez white matter differentiation. No hyperdense vessels to suggest intracranial thrombus. No acute intracranial hemorrhage. No mass effect or midline shift. No hydrocephalus or extra-axial collections. 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 No acute osseous abnormalities. Mastoid air cells and paranasal sinuses are clear. Normal soft tissues. IMPRESSION: IMPRESSION:1. No CT evidence of acute cortical infarct. No acute intracranial hemorrhage. No other acute intracranial findings. Please note that all CT scans at this facility use dose modulation, iterative reconstruction, and/or weight-based dosing when appropriate to reduce radiation dose to as low as reasonably achievable. Dictated by Remigio Hull MD @ 10/28/2024 4:14:24 PM (Electronically Signed)
[2024-10-28 15:30] VITALS: PULSE 65; O2SAT 100
[2024-10-28 15:31] VITALS: BP 154/88; PULSE 64; O2SAT 100
[2024-10-28 16:42] LABS: Troponin, Point-of-Care* 0.00 ng/ml (0.01-0.04)
== END 2024-10-28 16:52 | disposition home or self-care (01) ==
PROVIDERS: Emergency Provider Emergency Medicine
DX: M54.2 Cervicalgia (principal); R20.0 Anesthesia of skin
CPT/HCPCS: 36415; 70450; 70496; 70498; 80048; 84484; 85025; 85651; 99283; 99284; 99285; Q9967